=== PATIENT | male | born 1980 | race Caucasian/White ===

== ENCOUNTER 2020-06-24 23:12 | Emergency (ER) | payer SELFPAY ==
[2020-06-24 23:56] VITALS: BP 173/91
--- NOTE | 2020-06-25 00:19 | Emergency Department Report ---
ED General Adult HPI - General Chief complaint: High BP Stated complaint: HBP/BLOODY NOSE PUI?: No Time Seen by Provider: 06/25/20 00:01 Source: patient Mode of arrival: Ambulatory Limitations: No Limitations - History of Present Illness Initial comments: Patient is a 39-year-old male that presents emergency room with complaints of high blood pressure. Patient states his nosebleed last for about a minute to 2 minutes. Patient states that his nosebleed stopped with direct pressure. Patient states he has nosebleeds at times due to the heater in the drying effect. Patient states that after his nose started again, he checked his blood pressure and blood pressure is 170/100 at home. Patient states he has a history of high blood pressure and hyperlipidemia. Patient states that he stopped taking his heart for lipidemia medication on his own. Patient states that he also stopped taking his blood pressure medication because blood pressure improved. Patient states he has not seen a doctor for a few years. Patient states last time he took blood pressure or cholesterol medication was in 2013. Patient denies chest pain. Patient denies shortness of breath. Patient denies blurred vision. Patient denies headache. Patient denies neck pain. Patient denies neck stiffness. Patient denies abdominal pain. Patient denies recent travel. Patient denies recent international travel. Patient denies exposure to the novel coronavirus. Patient denies sick contacts. Patient denies fever and chills. Patient denies cough. Patient denies diarrhea. Patient denies coming in contact with anybody with symptoms of the novel coronavirus. -: Sudden Severity scale (0 -10): 0 Consistency: now resolved Improves with: other (Direct pressure) Worsens with: none Associated Symptoms: denies: confusion, chest pain, cough, diaphoresis, fever/chills, headaches, loss of appetite, malaise, nausea/vomiting, rash, seizure, shortness of breath, syncope, weakness Treatments Prior to Arrival: none - Related Data Home Medications Medication Instructions Recorded Confirmed Last Taken Atorvastatin Calcium [Lipitor] 1 tab PO DAILY 08/07/13 08/07/13 08/10/13 Benazepril/Hydrochlorothiazide 1 tab PO DAILY 08/07/13 08/07/13 08/10/13 [Benazepril-Hctz 5-6.25 mg Tab] Omeprazole 1 tab PO DAILY 03/12/1408/07/13 08/10/13 Previous Rx's Medication Instructions Recorded Last Taken Type Amlodipine Besylate [Norvasc] 2.5 mg PO DAILY 10 Days #10 tablet 06/25/20 Unknown Rx Allergies Allergy/AdvReac Type Severity Reaction Status Date / Time No Known Allergies Allergy Verified 08/11/13 10:28 ED Review of Systems ROS: Stated complaint: HBP/BLOODY NOSE Other details as noted in HPI Constitutional: denies: chills, fever Eyes: denies: eye pain, eye discharge, vision change ENT: epistaxis. denies: ear pain, throat pain Respiratory: denies: cough, shortness of breath, wheezing Cardiovascular: denies: chest pain, palpitations Endocrine: no symptoms reported Gastrointestinal: denies: abdominal pain, nausea, diarrhea Genitourinary: denies: urgency, dysuria Musculoskeletal: denies: back pain, joint swelling, arthralgia Skin: denies: rash, lesions Neurological: denies: headache, weakness, paresthesias Psychiatric: denies: anxiety, depression Hematological/Lymphatic: denies: easy bleeding, easy bruising ED Past Medical Hx - Past Medical History Previous Medical History?: Yes Hx Hypertension: Yes (3 MOS) Hx GERD: Yes Hx Asthma: No - Surgical History Past Surgical History?: Yes Hx Appendectomy: Yes (1999) - Family History Family history: no significant - Social History Smoking Status: Never Smoker Substance Use Type: None - Medications Home Medications: Home Medications Medication Instructions Recorded Confirmed Last Taken Type Atorvastatin Calcium [Lipitor] 1 tab PO DAILY 08/07/13 08/07/13 08/10/13 History Benazepril/Hydrochlorothiazide 1 tab PO DAILY 08/07/13 08/07/13 08/10/13 History [Benazepril-Hctz 5-6.25 mg Tab] Omeprazole 1 tab PO DAILY 08/07/13 08/07/13 08/10/13 History Amlodipine Besylate [Norvasc] 2.5 mg PO DAILY 10 Days #10 tablet 06/25/20 Unknown Rx ED Physical Exam - General Limitations: No Limitations General appearance: alert, in no apparent distress - Head Head exam: Present: atraumatic, normocephalic - Eye Eye exam: Present: normal appearance - ENT ENT exam: Present: mucous membranes moist, other (No active bleeding noted in the naris. ) - Neck Neck exam: Present: normal inspection - Respiratory Respiratory exam: Present: normal lung sounds bilaterally. Absent: respiratory distress, wheezes, rales - Cardiovascular Cardiovascular Exam: Present: regular rate, normal rhythm, normal heart sounds. Absent: systolic murmur, diastolic murmur, rubs, gallop - GI/Abdominal GI/Abdominal exam: Present: soft, normal bowel sounds - Rectal Rectal exam: Present: deferred - Extremities Exam Extremities exam: Present: normal inspection - Back Exam Back exam: Present: normal inspection - Neurological Exam Neurological exam: Present: alert, oriented X3 - Psychiatric Psychiatric exam: Present: normal affect, normal mood - Skin Skin exam: Present: warm, dry, intact, normal color. Absent: rash ED Course Vital Signs 06/24/20 23:50 Temperature 98.6 F Pulse Rate 91 H Respiratory 18 Rate Blood Pressure 173/91 O2 Sat by Pulse 98 Oximetry - Reevaluation(s) Reevaluation #1: Evaluation of pain patient will have a repeat blood pressure done by nurse. 06/25/20 00:18 Reevaluation #2: Patient's repeat blood pressure is 150/91. Patient advised to follow-up with his primary care for management of his blood pressure and other medical probl ems. Patient instructed to eat a low-salt, heart healthy diet. Patient also need to increase water at home. Patient will also need to monitor blood pressure at home. I discussed all clinical findings with patient. I discussed plan of care with patient. Patient agrees with plan of care. Patient is stable for discharge. Patient will be discharged home. Patient given discharge instructions. Patient voiced understanding of discharge instructions. 06/25/20 00:47 ED Medical Decision Making - Medical Decision Making Patient is a 39-year-old male that presents emergency room with complaints of high blood pressure and nosebleed. Patient has occasional nosebleeds due to the drying effect of using his heaters at home. Patient checked his blood pressure after having a nosebleed and blood pressure was 170/100. Patient has history of high blood pressure and hyperlipidemia and is noncompliant with his medications. Patient has not taken his medications for many years. Patient states the last time he saw 6 months ago his blood pressure was normal. Patient initial blood pressure. 73/91. Patient had a repeat blood pressure is 150/91. Patient will be given a prescription for Norvasc 2.5. Patient advised to monitor his blood pressure at home and keep a blood pressure log. patient does not require further evaluation in the ER. Patient not require further emergency medical services. Patient is stable for discharge. Patient given discharge instructions. - Differential Diagnosis High blood pressure, nosebleed, noncompliance. Critical care attestation.: If time is entered above; I have spent that time in minutes in the direct care of this critically ill patient, excluding procedure time. ED Disposition Clinical Impression: Essential hypertension, Noncompliance, Nosebleed Disposition: DC-01 TO HOME OR SELFCARE Is pt being admited?: No Does the pt Need Aspirin: No Condition: Stable Instructions: Hypertension (ED), Hypertension, Adult, [id number], Nosebleed, Adult, Nosebleed, [id number], DASH Eating Plan, Managing Your Hypertension, Hypertension, Adult, Preventing Hypertension, How to Take Your Blood Pressure Additional Instructions: Patient to follow-up with primary care in 2 to 3 days.. Patient to rest. Patient to increase water. Patient to eat a low-salt, heart healthy diet. Patient to increase water. Patient to monitor blood pressure at home. Patient to keep a blood pressure log. Patient to take blood pressure log to all follow- up appointments. Patient to take meds as directed. Patient to return to the ER if condition worsens, changes or new symptoms arise. Prescriptions: Amlodipine Besylate [Norvasc] 2.5 mg PO DAILY 10 Days #10 tablet Referrals: PRIMARY MD CRISPIN [Primary Care Provider] - 2-3 Days SUE REYNOLDS MD [Staff Physician] - 2-3 Days Time of Disposition: 00:52 Print Language: BULGARIAN
== END 2020-06-25 01:41 | disposition home or self-care (01) ==
LOC: ED 23:12
DX: I10 Essential (primary) hypertension (principal); R04.0 Epistaxis; K21.9 Gastro-esophageal reflux disease without esophagitis; Z90.49 Acquired absence of other specified parts of digestive tract; Z79.899 Other long term (current) drug therapy
CPT/HCPCS: 99282